=== PATIENT | male | born 2000 | race Caucasian/White ===

== ENCOUNTER → 2024-05-28 08:25 | Outpatient (REF) | payer BC, SELFPAY | LOC: WDC 08:25 | PROVIDERS: ATTENDING PHYSICIAN Nurse Practitioner Family | DX: N63.42 Unspecified lump in left breast, subareolar (principal) | CPT/HCPCS: 76642 ==

== ENCOUNTER 2024-11-27 06:50 | Emergency (ER) | payer BC, SELFPAY ==
[2024-11-27 07:00] VITALS: BP 133/86
[2024-11-27 07:42] LABS: % Basophils 0.3 % (0-2); % Eosinophils 0.9 % (0-6); % Immature Granulocytes 0.5 % (0-0.5); % Lymphocytes 7.8 % (20.5-51.1); % Monocytes 8.9 % (1.7-9.3); % Neutrophils 81.6 % (42.2-75.2); Absolute Eosinophils 0.1 10^3/uL (0-0.7); Absolute Lymphocytes 0.6 10^3/uL (1.2-3.4); Absolute Monocytes 0.7 10^3/uL (0.1-0.6); Absolute Neutrophils 6.4 10^3/uL (1.4-6.5); Hematocrit 43.9 % (39.0-52.0); Hemoglobin 15.2 g/dL (13.0-18.0); Mean Corp Hgb Conc. 34.6 g/dL (33.0-37.0); Mean Corpuscular Hgb 29.3 pg (27.0-31.0); Mean Corpuscular Volume 84.6 fL (80.0-94.0); Mean Platelet Volume 9.3 fL (7.4-10.4); Nucleated Red Blood Cells % 0 % (-); Platelet Count 189 10^3/uL (130-400); Red Blood Cell Count 5.19 10^6/uL (4.70-6.10); Red Cell Dist. Width 11.9 % (11.5-14.5); White Blood Cell Count 7.8 10^3/uL (4.8-10.8)
[2024-11-27 07:58] LABS: COVID-19 Antigen Negative (Negative)
[2024-11-27 07:59] LABS: ALT (SGPT) 31 U/L (0-50); AST (SGOT) 27 U/L (17-59); Albumin 4.7 g/dl (3.5-5.0); Alkaline Phosphatase 68 U/L (38-126); Blood Urea Nitrogen 16 mg/dl (9-20); Calcium 9.2 mg/dl (8.4-10.2); Carbon Dioxide 26 mmol/L (22-30); Chloride 96 mmol/L (98-107); Glucose 118 mg/dl (70-99); Lipase 49 U/L (23-300); Potassium 3.9 mmol/L (3.5-5.1); Sodium 133 mmol/L (135-145); Total Bilirubin 2.8 mg/dl (0.2-1.3); Total Protein 7.2 g/dl (6.3-8.2); eGFR > 60.00
[2024-11-27 08:09] LABS: Troponin I < 0.012 ng/ml
--- NOTE | 2024-11-27 10:36 | ED.GENMED ---
History of Present Illness
<Jairo Alicia DO, Resident - Last Filed: 11/27/24 11:48>
General
Chief Complaint: Cold/Flu/URI Symptoms
Source: patient and records
Time Seen by Provider: 11/27/24 09:31
History of Present Illness
History of Present Illness:
24-year-old male past medical history significant for asthma, anxiety, depression, and Clyde's thyroiditis. Presents for 1 day of elevated fever, nausea and vomiting and diarrhea. Patient reports nausea started last night, he has had multiple
episodes of vomiting, nonbloody nonprojectile as well as multiple episodes of watery nonbloody diarrhea. Patient also reports fever, chills with a Tmax of 103 this morning. Patient does report sick contacts, some of his friends were sick with a
stomach bug who he was around recently. As per today patient is complaining of some pleuritic chest pain, mentioned he was having palpitations previously which have resolved.
Past History
<Jairo Alicia DO, Resident - Last Filed: 11/27/24 11:48>
Social History
Tobacco: Non-smoker
Alcohol: Occasional
Drug: Marijuana
Review of Systems
<Jairo Alicia DO, Resident - Last Filed: 11/27/24 11:48>
Review of Systems
Constitutional: Reports fever and chills
EENT: Reports no symptoms
Respiratory: Reports no symptoms
Cardiac: Reports chest pain (Pleuritic in nature) and palpitations
ABD/GI: Reports abdominal pain, nausea, vomiting and diarrhea
Neurological: Reports no symptoms
Phy Exam
<Jairo Alicia DO, Resident - Last Filed: 11/27/24 11:48>
General Physical Exam
General Presentation: well appearing and no apparent distress
General Skin: warm and dry
Cardiovascular Exam
Cardiovascular Exam: regular rate/rhythm, no edema and no murmur
Pulmonary Exam
Pulmonary Exam: lungs clear, no respiratory distress, no crackles and no wheezing
Gastrointestinal Exam
Gastrointestinal Exam: soft, non distended and tender (Tender to palpation in bilateral lower quadrants. No rebound no guarding)
Course
<Jairo Alicia DO, Resident - Last Filed: 11/27/24 11:48>
Orders/Labs/Results
Orders:
Orders
11/27/24 07:05
Electrocardiogram (*1) Urgent
Reason for Study: Chest Pain
EKG- Treatment ONCE
CR Chest - 2 Views Urgent
Comment:
Reason For Exam: chest pain
11/27/24 07:26
COVID-19 Antigen Urgent
Source: Nasal Swab
Complete Blood Count/With Diff Urgent
Comprehensive Metabolic Panel Urgent
Lipase Urgent
Troponin I Urgent
Influenza A+B Rapid Molecular Urgent
NANCY Source: Nasal Swab
Specimen Description:
11/27/24 10:29
Ondansetron HCl [Zofran] 4 mg PO NOW STA
Abnormal Lab Results
11/27/24
07:26
Absolute Lymphs (auto) 0.6 L 10^3/uL
(1.2-3.4)
Absolute Monos (auto) 0.7 H 10^3/uL
(0.1-0.6)
Neutrophils % 81.6 H %
(42.2-75.2)
Lymphocytes % 7.8 L %
(20.5-51.1)
Sodium 133 L mmol/L
(135-145)
Chloride 96 L mmol/L
(98-107)
Creatinine 1.4 H mg/dL
(0.7-1.3)
Glucose 118 H mg/dl
(70-99)
Total Bilirubin 2.8 H mg/dl
(0.2-1.3)
11/27/24 07:26
11/27/24 07:26
Vital Signs
Initial and Last Documented VS:
Initial Vital Signs
Temp Pulse Resp BP Pulse Ox
98.4 F 98 16 133/86 98
11/27/24 07:00 11/27/24 07:00 11/27/24 07:00 11/27/24 07:00 11/27/24 07:00
Last Documented Vital Signs
Temp Pulse Resp BP Pulse Ox
98.4 F 98 16 133/86 98
11/27/24 07:00 11/27/24 07:00 11/27/24 07:00 11/27/24 07:00 11/27/24 07:00
<Joyce Dubois MD - Last Filed: 11/27/24 11:34>
Orders/Labs/Results
Orders:
Orders
11/27/24 07:05
Electrocardiogram (*1) Urgent
Reason for Study: Chest Pain
EKG- Treatment ONCE
CR Chest - 2 Views Urgent
Comment:
Reason For Exam: chest pain
11/27/24 07:26
COVID-19 Antigen Urgent
Source: Nasal Swab
Complete Blood Count/With Diff Urgent
Comprehensive Metabolic Panel Urgent
Lipase Urgent
Troponin I Urgent
Influenza A+B Rapid Molecular Urgent
NANCY Source: Nasal Swab
Specimen Description:
11/27/24 10:29
Ondansetron HCl [Zofran] 4 mg PO NOW STA
Abnormal Lab Results
11/27/24
07:26
Absolute Lymphs (auto) 0.6 L 10^3/uL
(1.2-3.4)
Absolute Monos (auto) 0.7 H 10^3/uL
(0.1-0.6)
Neutrophils % 81.6 H %
(42.2-75.2)
Lymphocytes % 7.8 L %
(20.5-51.1)
Sodium 133 L mmol/L
(135-145)
Chloride 96 L mmol/L
(98-107)
Creatinine 1.4 H mg/dL
(0.7-1.3)
Glucose 118 H mg/dl
(70-99)
Total Bilirubin 2.8 H mg/dl
(0.2-1.3)
11/27/24 07:26
11/27/24 07:26
Vital Signs
Initial and Last Documented VS:
Initial Vital Signs
Temp Pulse Resp BP Pulse Ox
98.4 F 98 16 133/86 98
11/27/24 07:00 11/27/24 07:00 11/27/24 07:00 11/27/24 07:00 11/27/24 07:00
Last Documented Vital Signs
Temp Pulse Resp BP Pulse Ox
98.4 F 98 16 133/86 98
11/27/24 07:00 11/27/24 07:00 11/27/24 07:00 11/27/24 07:00 11/27/24 07:00
<Jairo Alicia DO, Resident - Last Filed: 11/27/24 11:48>
MDM/Problems Addressed
Differential Diagnosis Includes:
Acute viral gastroenteritis, dehydration, acute kidney injury, musculoskeletal strain
MDM/Problems Addressed:
24-year-old male past medical history of Clyde's, asthma, depression presents for 1 day duration of nausea vomiting and diarrhea
Patient reports he has been having episodes of nonprojectile, nonbloody nausea and vomiting for the past day, this started after he hung out with friends who have been sick with a 'GI bug'
Patient is also endorsing multiple episodes of watery, nonbloody diarrhea
Constellation of symptoms suspicious for acute viral gastroenteritis
Patient is also endorsing some palpitations he felt during his episodes, some shortness of breath and some pleuritic chest pain
Likely symptoms are secondary to vomiting,
chest x-ray ordered, no pneumothorax, no atelectasis
Vitals are within normal limits, pressure slightly elevated, not tachycardic, not tachypneic, afebrile, satting 98% on room air
EKG demonstrates normal sinus rhythm, QTc 434
Likely chest pain is secondary to musculoskeletal strain from vomiting
WBC, hemoglobin within normal limits
Chemistry demonstrates slight hyponatremia 133, creatinine elevated 1.4 baseline is approximately 1.1
Meets criteria for LILLIE, likely secondary to dehydration from nausea and vomiting
Patient given one-time dose of oral Zofran
Patient was able to tolerate p.o. fluids well, did not vomit and did not have nausea with water
As patient is able to tolerate fluids by mouth without Zofran, do not believe he will need a prescription on discharge. Will give him one-time oral dose Zofran before he leaves ED
Believe patient is stable for discharge, encourage p.o. intake with fluids and Gatorade
Educated patient on proper hand hygiene for neurovirus, will send discharge instructions for guidance regarding diets to follow
<Jairo Alicia DO, Resident - Last Filed: 11/27/24 11:48>
*Critical Care Note
Total Time (30-74mins, 75-104mins- exclusive of procedures): Not Applicable
ED Attending Note
<Jairo Alicia DO, Resident - Last Filed: 11/27/24 11:48>
-
Portions of this chart may have been created with voice recognition software.� Occasional wrong word or��sound alike� substitutions may have occurred due to the inherent limitations of voice recognition software.
<Joyce Dubois MD - Last Filed: 11/27/24 11:34>
ED Attending Note
Patient seen and examined by attending physician: Yes
I performed the substantive portion of visit, reviewed & personally made and approve the management plan that is documented in note by myself or UCHE.: Yes
I performed a history and physical exam of patient and discussed management with resident, I reviewed resident's note and agree with documented findings and plan of care.: Yes
ED Attending Note:
24-year-old male presents emergency department with reported subjective fever and vomiting that started yesterday/last night. He states that he then started to notice chest discomfort that feels like a 'muscle pull' in the lower chest area
associated with palpitations which concerned him. Upon arrival, heart rate normal, patient well-appearing, no respiratory distress. Heart regular rate and rhythm, lungs CTA, abdomen soft and nontender, tolerating p.o. here. Chest x-ray read by me
NAD. EKG read by me normal sinus rhythm, normal rate, normal axis, no acute ischemia. Low clinical suspicion for cardiopulmonary event such as ACS, pericarditis, PE, etc. given unremarkable exam, workup, vitals, etc. Patient does not describe
persistent pleuritic chest pain, dyspnea, hemoptysis, leg swelling, etc. Patient tolerated p.o. here. Discussed with patient portance of follow-up and reasons return to the ER.
Discharge Plan
Departure
Patient Disposition: Home (Routine Discharge)
Date of Disposition: 11/27/24
Time of Disposition: 11:44
Patient with high blood pressure during this ER visit?: Yes
Condition: Good
Discharge Problem:
Viral gastroenteritis
Instructions: Viral gastroenteritis in adults, [place] diet, Clear Liquid Diet, BLOOD PRESSURE
Prescriptions:
No Action
cyanocobalamin (vitamin B-12) 100 MCG tablet
1,000 mcg PO NOW
levothyroxine 125 MCG tablet
137 mcg PO DAILY
dextroamphetamine-amphetamine 15 MG tablet
15 mg PO PRN PRN (Reason: adhd)
loratadine 10 MG tablet
10 mg PO DAILY
carbamazepine 100 MG capsule, ER multiphase 12 hr
200 mg PO HS
cholecalciferol (vitamin D3) 2,000 UNITS tablet
2,000 units PO DAILY
ondansetron 4 MG tablet,disintegrating
4 mg PO TIDPRN PRN (Reason: nausea/vomiting) Qty: 10 0RF
Referrals:
[facility] [Outside] - Call in 1-3 days for appt
UNKNOWN - PT DOES,NOT KNOW [Family Provider] -
Activity Restrictions/Additional Instructions:
Please follow-up with your primary care provider, call 1 to 3 days for an appointment. If you do not have 1 referral to [facility] is provided
Please drink plenty of fluids, water or Gatorade by mouth, please eat a diet as tolerated. Instructions on foods to eat is provided
Please wash your hands with soap and water and have friends and family do the same to avoid spreading viral illness
Please return the emerged if you notice worsening of your symptoms, severe abdominal pain, intractable nausea and vomiting, weakness or unable to tolerate fluids by mouth.
Interventions
Interventions:
*Risk Screen - Suicide Last Done: 11/27/24 07:05
*General Assessment Last Done: 11/27/24 07:04
*Neglect/Abuse Screening Last Done: 11/27/24 07:05
Discharge Date and Time
Print Language: FINNISH
[2024-11-27] MEDS: ZOFRAN 4 MG PO (11:48)
[2024-11-27 12:02] VITALS: BP 128/70
== END 2024-11-27 12:04 | disposition home or self-care (01) ==
LOC: EMR 06:50
PROVIDERS: EMERGENCY PHYSICIAN Emergency Medicine
DX: A08.4 Viral intestinal infection, unspecified (principal); J45.909 Unspecified asthma, uncomplicated; F41.8 Other specified anxiety disorders; E06.3 Autoimmune thyroiditis; E87.1 Hypo-osmolality and hyponatremia; N17.9 Acute kidney failure, unspecified
CPT/HCPCS: 99283; 71046; 80053; 83690; 84484; 85025; 87502; 87811; 93005